=== PATIENT | male | born 1935 | race Caucasian/White ===

== ENCOUNTER → 2018-06-12 15:41 | Outpatient (CLI) | payer MEDICARE, BC, SELFPAY ==
--- NOTE | 2018-06-17 15:48 | PM.PFT.1 ---
Pulmonary Function Test Referral & Results Date Patient Seen: 06/12/18 Requesting provider: Gina Munoz Indication: R06.02 Results: The spirometry demonstrates an FVC of 2.92 L which is 72% of predicted. The FEV1 was measured at 2.40 L which is 85% of predicted. The FEV1/FVC ratio was 82 which is 115% of predicted. Following the administration of bronchodilator there was no appreciable change. Lung volumes show an SVC of 3.14 L which is 70% of predicted. The diffusing capacity was measured at 15.76 which is 46% of predicted. No hemoglobin value was provided, so no correction for potential anemia could be made, if appropriate. The maximum voluntary ventilation was reduced slightly Interpretation: This study demonstrates mild obstructive lung disease There is evidence of more significant restrictive lung disease based on reduction in lung volumes and much more significant reduction in diffusing capacity suggests significant disease at the capillary alveolar level Clinical correlation suggested
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
== END ==
PROVIDERS: PCP Internal Medicine; Visit Provider Internal Medicine Critical Care Medicine
DX: R06.02 Shortness of breath (principal); J84.9 Interstitial pulmonary disease, unspecified
CPT/HCPCS: 94060; 94726; 94729

== ENCOUNTER → 2019-03-09 14:33 | Outpatient (CLI) | payer MEDICARE, BC, SELFPAY ==
--- NOTE | 2019-03-09 14:39 | DI.MRI.S_ITS ---
PROCEDURE: MR CERVICAL SPINE WO CON INDICATIONS: Cervical radiculopathy TECHNIQUE: Noncontrast sagittal T1 spin echo and T2 fast spin echo, sagittal STIR, foraminal oblique sagittal T2 fast spin echo, and axial gradient echo or T2 fast spin echo through the cervical spine. COMPARISON: [facility], MR, MR LUMBAR SPINE WO CON, 03/09/2019, 15:11. [facility], CR, XR CERVICAL SPINE 4V OR 5V, 03/09/2019, 14:37. FINDINGS: Image quality: This examination is limited by involuntary motion artifact, particularly anteriorly Alignment and Curvature: There is mild anterolisthesis seen at C5-C6 and C6-C7, with minimal anterolisthesis at C7-T1. Bone Marrow: Marrow demonstrates normal overall signal. Spinal Cord: Visualized spinal cord has normal size and signal. No cerebellar tonsillar herniation. Paraspinous Soft Tissues: No paravertebral masses. Prevertebral soft tissues are normal in thickness. C2-C3: The disc height is well-preserved. Loss of disc signal is seen at this level. Moderate disc osteophyte complex is seen, which is eccentric to the right. There is mild to moderate facet hypertrophy seen. At least moderate bilateral neural foraminal narrowing is seen. [id number] central canal narrowing is seen. C3-C4: Mild to moderate loss of disc height and disc signal are seen. Moderate generalized disc osteophyte complex is seen. There is moderate right-sided and moderate to prominent left-sided facet hypertrophy seen. Moderate to severe bilateral neural foraminal narrowing is seen. [id number] central canal narrowing is seen. C4-C5: Moderate loss of disc height is seen. The disc signal is relatively well preserved anteriorly. A mild degree of generalized disc osteophyte complex is seen. There is moderate right-sided and moderate to prominent left-sided facet hypertrophy seen. There is at least moderate bilateral neural foraminal narrowing seen, left worse than right. Mild central canal narrowing is seen. C5-C6: The disc height is well-preserved. Loss of disc signal is seen at this level. Moderate generalized disc osteophyte complex is seen. Moderate to prominent facet hypertrophy is seen. Moderate to severe bilateral neural foraminal narrowing can be seen at this level. Mild central canal narrowing is seen. C6-C7: The disc height is well-preserved. Loss of disc signal is seen at this level. Moderate generalized disc osteophyte complex is seen. Moderate to severe bilateral neural foraminal narrowing is seen. Mild central canal narrowing is seen. C7-T1: Mild loss of disc height is seen. Loss of disc signal is seen. Moderate generalized disc osteophyte complex is seen. There is moderate bilateral neural foraminal narrowing seen, left worse than right. Mild central canal narrowing is seen. IMPRESSION: Multiple levels of cervical spine degenerative change are seen, including moderate to severe bilateral neural foraminal narrowing at C3-C4, C5-C6, and C6-C7. Dictated by: Neto Serna M.D. on 03/09/2019 at 16:21 Approved by: Neto Serna M.D. on 03/09/2019 at 16:25
--- NOTE | 2019-03-09 14:39 | DI.RAD.S_ITS ---
PROCEDURE: XR CERVICAL SPINE 4V OR 5V INDICATIONS: Cervical radiculopathy TECHNIQUE: 5 views of the cervical spine acquired. COMPARISON: Same day MR cervical spine.. FINDINGS: Bones: No fractures or dislocations to the C6 level. Prominent uncovertebral joint hypertrophy in the mid cervical spine. Oblique images demonstrate mild to moderate multilevel bony foraminal stenoses which appears to be most evident on the right but this may be positional. Post median sternotomy. Soft tissues: No prevertebral soft tissue swelling. Lung apices appear clear. IMPRESSION: Moderate to severe degenerative change in the cervical spine. Apparent mild to moderate multilevel bony foraminal stenosis. Dictated by: Dilip Wilde M.D. on 03/09/2019 at 16:02 Approved by: Dilip Wilde M.D. on 03/09/2019 at 16:11
--- NOTE | 2019-03-09 14:39 | DI.MRI.S_ITS ---
PROCEDURE: MR LUMBAR SPINE WO CON INDICATIONS: low back pain TECHNIQUE: Noncontrast sagittal T1 spin echo and T2 fast echo, sagittal STIR, axial T1 and T2 fast spin echo through the lumbar spine. In cases with scoliosis, additional coronal T2 fast spin echo may be performed. COMPARISON: None. FINDINGS: Image quality: Excellent. Alignment and Curvature: There is normal bony alignment. Bone Marrow: Marrow is of normal overall signal. No acute vertebral body compression fractures. Spinal Cord: Conus medullaris terminates at the L2 level. Visualized cord demonstrates normal signal and size. Paraspinous Soft Tissues: No paravertebral masses. L1-L2: Loss of disc signal. Mild, diffuse disc bulge. Mild bilateral facet hypertrophy. Mild narrowing of the central canal. Mild bilateral neural foraminal narrowing. No neural compression. L2-L3: Loss of disc signal and slight loss of disc height. Mild to moderate diffuse disc bulge. Mild facet and moderate ligamentum flavum hypertrophy. Moderate narrowing of the central canal. Moderate bilateral neural foraminal narrowing. No neural compression. L3-L4: Loss of disc signal. Moderate, diffuse disc bulge. Moderate facet and moderate ligamentum flavum hypertrophy. Severe narrowing of the central canal with compression of the nerve roots of the cauda equina. Moderate to severe right and moderate left neural foraminal narrowing slight compression of the exiting right L3 nerve L4-L5: Loss of disc signal. Mild, diffuse disc bulge. Moderate facet and moderate ligamentum flavum hypertrophy. Moderate narrowing of the central canal with slight compression of the nerve roots of the cauda equina. Moderate bilateral neural foraminal narrowing. L5-S1: Loss of disc signal. Mild, diffuse disc bulge. Mild to moderate bilateral facet hypertrophy. No central stenosis. Severe right and moderate to severe left neural foraminal narrowing with marked compression of the exiting right L5 nerve root and slight compression of the exiting left L5 nerve root. IMPRESSION: 1. Multilevel degenerative disc disease. 2. Multilevel facet arthropathy. 3. Severe L3-L4 and L4-L5 central canal narrowing. Moderate L2-L3 central canal narrowing. Mild L1-L2 Central canal narrowing. 4. Severe right and moderate to severe left L5-S1 neural foraminal narrowing. Moderate to severe right and moderate left L3-L4 neural foraminal narrowing. Moderate bilateral L2-L3 and L4-L5 neural foraminal narrowing. Mild bilateral L1-L2 neural foraminal narrowing. Dictated by: Ale Banks MD, PhD on 03/09/2019 at 16:28 Approved by: Ale Banks MD, PhD on 03/09/2019 at 16:32
== END ==
PROVIDERS: PCP Internal Medicine; Visit Provider Physical Medicine & Rehabilitation
DX: M47.22 Other spondylosis with radiculopathy, cervical region (principal); M48.02 Spinal stenosis, cervical region; M54.5 Low back pain; M51.16 Intervertebral disc disorders with radiculopathy, lumbar region; M51.17 Intervertebral disc disorders with radiculopathy, lumbosacral region; M47.26 Other spondylosis with radiculopathy, lumbar region; M47.27 Other spondylosis with radiculopathy, lumbosacral region; M48.061 Spinal stenosis, lumbar region without neurogenic claudication; M48.07 Spinal stenosis, lumbosacral region
CPT/HCPCS: 72050; 72141; 72148

== ENCOUNTER → 2023-07-26 11:01 | Outpatient (CLI) | payer MEDICARE, BC, SELFPAY ==
--- NOTE | 2023-07-26 11:03 | DI.CT.S_ITS ---
PROCEDURE: CT CHEST WO CON INDICATIONS: interstitial lung disease TECHNIQUE: Noncontrast 5 mm thick sections acquired from the pulmonary apices to the posterior costophrenic angles. 1 mm lung window, 5 mm thick coronal and sagittal and 7 mm axial MIP reformats were then acquired. For radiation dose reduction, the following was used: automated exposure control, adjustment of mA and/or kV according to patient size. COMPARISON: [facility], CT, CT CHEST WITHOUT CONTRAST, 08/17/2022, 15:56. FINDINGS: Image quality: Diagnostic. Lower Neck: No enlarged lymph nodes. Thyroid: No thyroid nodules which require sonographic follow up, per consensus guidelines. Axillae: No enlarged lymph nodes. Chest Wall: Median sternotomy wires are seen. Bones: Degenerative disc disease throughout thoracic spine is noted. No aggressive appearing bony lesions.. Lungs and Pleura: Chronic interstitial lung disease is again seen with peripheral reticular nodular thickening with apical basal gradient unchanged from prior study. No suspicious pulmonary nodule or mass is identified. No pleural effusion or pneumothorax. Central and peripheral airway is patent. Bronchiectasis in bilateral lower lung barrientos are seen. Heart: Heart size is normal. No pericardial effusion. Thoracic Vessels: The aorta and pulmonary arteries demonstrate normal size. 3 vessel coronary artery calcifications and/or stents are seen unchanged from prior study. Mediastinum and Malina: Borderline prominent mediastinal lymph nodes are seen measures up to 1 cm in size in right paratracheal space.. Esophagus: No wall thickening. No hiatal hernia. Upper Abdomen: Visualized upper abdomen solid organs and bowel loops appear normal. Prior cholecystectomy is again seen. IMPRESSION: 1. Stable appearance of chronic interstitial lung parenchymal disease. No suspicious pulmonary nodule or mass is noted. Bronchiectasis in bilateral lower lung barrientos. No pleural effusion or pneumothorax. 2. Nonspecific borderline prominent mediastinal lymph nodes. Prior median sternotomy and 3 vessel coronary artery atherosclerotic calcifications and/or stents. Dictated by: Rc Acharya M.D. on 07/26/2023 at 13:29 Approved by: Rc Acharya M.D. on 07/26/2023 at 13:54
== END ==
LOC: CT 11:03
PROVIDERS: PCP Family Medicine; Referring Provider Internal Medicine Pulmonary Disease; Visit Provider Internal Medicine Pulmonary Disease
DX: J84.9 Interstitial pulmonary disease, unspecified (principal); J47.9 Bronchiectasis, uncomplicated
CPT/HCPCS: 71250